=== PATIENT | female | born 1955 | race Caucasian/White ===

== ENCOUNTER 2022-01-05 11:44 | Outpatient (REF) | payer OTHER, SELFPAY | END 2022-01-05 11:45 | disposition home or self-care (01) | LOC: HO.LNP 11:44 | PROVIDERS: Visit Provider Internal Medicine | DX: R30.0 Dysuria (principal) | CPT/HCPCS: 87086 ==

== ENCOUNTER 2023-07-06 09:40 | Outpatient (AMB) | payer MEDICARE, SELFPAY ==
--- NOTE | 2023-07-06 10:40 | AM.OFFWIN_ITS ---
Intake Vital Signs 07/06/23 10:46 Height 5 ft 5 in Weight 210 lb BMI 34.9 BP 170/90 H Blood Pressure Location Lt brachial Position Sitting Pulse 70 Pulse Source Pulse Oximeter Temp 97.5 F Temp Source Temporal Artery Scan Pulse Oximetry (%) 96 Intake Visit Reasons: EP lingering cough [phone] Intake Note: pt is here today for lingering cough started 2 weeks ago Patient Tobacco Use Status: Never used Tobacco Allergies Sulfa (Sulfonamide Antibiotics) [SULFA (SULFONAMIDE ANTIBIOTICS)] Allergy (Unknown, Verified 07/06/23 10:40) HIVES/RASH/COUGH sulfacetamide Allergy (Unknown, Verified 07/06/23 10:40) vomiting sulfur Allergy (Unknown, Verified 07/06/23 10:40) Vomiting Do you need a note to return to daycare/school/sports/work: No HPI HPI Comments History of Present Illness Details This is a 67-year-old female who presented to the office complaining of a persistent dry/hacking cough x1 week. She denies any other significant symptoms such as nasal/sinus congestion, rhinorrhea, sore throat, fever/chills, chest pain, shortness of breath, abdominal pain, or nausea/vomiting/diarrhea. She denies any sputum production/purulence. She states she feels as though her chest is congested but she is unable to cough up the mucus. [facility] Social History Patient Tobacco Use Status: Never used Tobacco Review of Systems Const All systems reviewed & are unremarkable except as noted in HPI and below Reports no additional complaints Eyes Reports no additional complaints ENT Reports no additional complaints Card Reports no additional complaints Resp Reports no additional complaints GI Reports no additional complaints Reports no additional complaints Musc Reports no additional complaints Skin/Breast Reports system reviewed and no additional complaints, except as documented Neuro Reports no additional complaints Psych Reports no additional complaints Endo Reports no additional complaints Ino/Lymph Reports no additional complaints Aller/Immun Reports no additional complaints Physical Exam Vital Signs: Last Vital Signs Temp 97.5 F 07/06/23 10:46 Pulse 7 L 07/06/23 10:46 BP 170/90 H 07/06/23 10:46 Pulse Ox 96 07/06/23 10:46 BMI result Body Mass Index 34.9 Const Other: Vital signs reviewed. Constitutional: Non-toxic appearing. No acute distress. Well-developed and well-nourished. HEENT: Normocephalic and atraumatic. Skin: Warm and dry. No rashes or lesions noted. Neck: Full and painless range of motion. No cervical lymphadenopathy. Cardio: Regular rate and rhythm. No murmurs, gallops, or rubs. No lower extremity edema. No JVD. Pulmonary: No respiratory distress. No accessory muscle usage. She has scattered rhonchi, which clear with coughing. Gastrointestinal: Soft, nontender, and nondistended in all 4 quadrants. Normoactive bowel sounds in all 4 quadrants. Genitourinary: No CVA tenderness. Musculoskeletal: Normal range of motion in joints throughout the body. No deformity or other signs of injury. Neuro: Alert and oriented x4. Cranial nerves 2-12 grossly intact. No focal deficits appreciated. Psych: Normal mood and affect. Assessment & Plan Assessment & Plan (1) Acute bronchitis: Code(s): J20.9 - Acute bronchitis, unspecified Qualifiers: Bronchitis organism: unspecified organism Qualified Code(s): J20.9 - Acute bronchitis, unspecified Plan: This is a 67-year-old female presenting to the office complaining of a persistent cough with chest congestion. On physical examination, she is scattered rhonchi which clear with coughing. History and physical most consistent with an acute bronchitis. Patient was sent home on p.o. prednisone 40 mg daily x5 days. Recommended akey-smf-vlqnfpt guaifenesin to loosen the mucus. Patient's vital signs are stable, her physical exam is otherwise benign, and she is overall nontoxic appearing she is maintaining oxygen saturations on room air. Patient is safe to be discharged home. Patient was advised to follow-up here or proceed to the emergency room if she were to develop persistent or worsening symptoms such as shortness of breath, fever/chills, or sputum production/purulence. Patient verbalizes her understanding and she is in agreement with the plan. Medications: New prednisone 40 mg (2 x 20 mg) PO DAILY 10 tabs 0RF Coding Level of Care Code Est Pt Level 3 (57325) Diagnoses Acute bronchitis, unspecified organism J20.9 Bronchitis organism: unspecified organism
[2023-07-06 10:46] VITALS: BP 170/90; PULSE 70; TEMP 36.4; O2SAT 96; BMI 34.9
== END 2023-07-06 11:53 | disposition home or self-care (01) ==
PROVIDERS: Visit Provider Physician Assistant Medical
DX: J20.9 Acute bronchitis, unspecified (principal)
CPT/HCPCS: 99213

== ENCOUNTER 2023-08-14 08:35 | Outpatient (AMB) | payer MEDICARE, SELFPAY ==
[2023-08-14 08:54] VITALS: BP 140/90; PULSE 87; TEMP 36.6; O2SAT 97; BMI 34.8
--- NOTE | 2023-08-14 08:54 | AM.OFFWIN_ITS ---
Intake Vital Signs 08/14/23 08:54 Height 5 ft 5 in Weight 209 lb BMI 34.8 BP 140/90 H Blood Pressure Location Lt brachial Position Sitting Pulse 87 Pulse Source Pulse Oximeter Temp 97.9 F Temp Source Temporal Artery Scan Pulse Oximetry (%) 97 Oxygen Delivery Method Room Air Intake Visit Reasons: EP Sore throat, cough (masked) Intake Note: pt is here today for sore throat cough started 1 week ago Patient Tobacco Use Status: Never used Tobacco Allergies Sulfa (Sulfonamide Antibiotics) [SULFA (SULFONAMIDE ANTIBIOTICS)] Allergy (Unknown, Verified 08/14/23 09:28) HIVES/RASH/COUGH sulfacetamide Allergy (Unknown, Verified 08/14/23 09:28) vomiting sulfur Allergy (Unknown, Verified 08/14/23 09:28) Vomiting Medication List - Last Reconciled 08/14/23 by Kang Mendiola MD No Known Home Meds Do you need a note to return to daycare/school/sports/work: No HPI EP Sore throat, cough (masked) HPI Details Patient presents for a sick visit. Reporting symptoms of sinus congestion, sore throat and difficulty swallowing. Low-grade fever. No family member is sick. No recent travel. Patient reports symptoms of malaise and fatigue. [facility] Social History Patient Tobacco Use Status: Never used Tobacco Physical Exam Vital Signs: Last Vital Signs Temp 97.9 F 08/14/23 08:54 Pulse 87 08/14/23 08:54 BP 140/90 H 08/14/23 08:54 Pulse Ox 97 08/14/23 08:54 Oxygen Delivery Method Room Air 08/14/23 08:54 BMI result Body Mass Index 34.8 Const General: cooperative and healthy appearing Nutritional Appearance: well nourished Orientation/consciousness: patient oriented x3 Limitations: no limitations HEENT Head: Yes normal to inspection Eyes General: appearance normal, both eyes and all related structures Neck Neck: Yes normal visual inspection Chest Chest palpation & inspection: normal palpation of entire chest wall Resp Effort & Inspection: normal respiratory effort Neuro General: patient oriented x3 Results AMB Rapid Strep AMB Rapid Strep Negative Last Edit by Akira Headley on 08/14/23 09:24 Results Reviewed Results Reviewed: Laboratory Last Values Strep Scn [facility] Negative 08/14/23 09:23 Assessment & Plan Assessment & Plan (1) Upper respiratory tract infection: Code(s): J06.9 - Acute upper respiratory infection, unspecified Plan: Antibiotics ordered. Increase fluid intake. Tylenol for aches and pains. If symptoms worsen, follow-up here for a recheck. Coding Level of Care Code Est Pt Level 3 (45982) Diagnoses Upper respiratory tract infection J06.9
== END 2023-08-14 10:16 | disposition home or self-care (01) ==
PROVIDERS: Visit Provider Internal Medicine
DX: J06.9 Acute upper respiratory infection, unspecified (principal)
CPT/HCPCS: 99213

== ENCOUNTER 2025-02-10 10:24 | Outpatient (REF) | payer MEDICARE, SELFPAY ==
[2025-02-10 15:40] LABS: Chlamydia pneumoniae PCR Not Detected (Not Detect.); Coronavirus 229E PCR Not Detected (Not Detect.); Coronavirus HKU1 PCR Not Detected (Not Detect.); Coronavirus NL63 PCR Not Detected (Not Detect.); Coronavirus OC43 PCR Not Detected (Not Detect.); RSV PCR Not Detected (Not Detect.); Rhino/Enterovirus PCR Detected (Not Detect.)
[2025-02-10 15:44] LABS: Influenza A H1 PCR Not Detected (Not Detect.); Influenza A H1-2009 PCR Not Detected (Not Detect.); Influenza A H3 PCR Not Detected (Not Detect.); SARS-CoV-2 PCR Not Detected (Not Detect.)
== END 2025-02-10 10:25 | disposition home or self-care (01) ==
LOC: HO.LNP 10:24
PROVIDERS: Visit Provider Physician Assistant Medical
DX: J06.9 Acute upper respiratory infection, unspecified (principal)
CPT/HCPCS: 87633